=== PATIENT | male | born 1965 | race Caucasian/White ===

== ENCOUNTER 2017-09-12 06:04 | Emergency (ER) | payer BC ==
[~2017-09-12] VITALS: Ht 190.5 cm; Wt 145.1 kg
--- NOTE | 2017-09-12 06:12 | NUR ---
PT TO ER BED 09. BIBFAMILY C/O BACK PAIN FROM [facility] X 2 HOURS AGO. DENIES LOC/HEAD TRAUMA. PT PLACED ON BL[employer]. VSS/RESP EVEN UNLABORED/NAD NOTED/SKIN WARM AND DRY/AFEBRILE/DENIES N-V-D/AOX4. AWAITING MD JACOB.
[2017-09-12] MEDS ORDERED: ONDANSETRON 4 MG TAB.RAPDIS SL ONE (06:30)
[2017-09-12] MEDS ORDERED: HYDROMORPHONE 1 MG/1 ML DISP.SYRIN IM ONE (06:30)
[2017-09-12] MEDS ORDERED: ONDANSETRON 4 MG TAB.RAPDIS ONE (06:37)
[2017-09-12] MEDS ORDERED: HYDROMORPHONE INJ 2 MG/ML DISP.SYRIN ONE (06:37)
[2017-09-12] MEDS ORDERED: HYDROCODONE/APAP 10/325MG 1 EA TABLET ONE (07:40)
--- NOTE | 2017-09-12 07:44 | NUR ---
Patient discharged to home in stable condition. Written and verbal after care instructions given. Instructed not to drive. Patient verbalizes understanding of instruction.
[2017-09-12 07:45] VITALS: BP 128/74
[2017-09-12] MEDS ORDERED: HYDROCODONE/APAP 10/325MG 1 EA TABLET PO ONE (08:00)
== END 2017-09-12 07:46 | disposition home or self-care (01) ==
LOC: ER 06:10
DX: S39.012A Strain of muscle, fascia and tendon of lower back, initial encounter (principal); S30.0XXA Contusion of lower back and pelvis, initial encounter; I10 Essential (primary) hypertension; E11.9 Type 2 diabetes mellitus without complications; Z98.890 Other specified postprocedural states; W18.39XA Other fall on same level, initial encounter; Y93.89 Activity, other specified; Y92.89 Other specified places as the place of occurrence of the external cause; Y99.8 Other external cause status
CPT/HCPCS: 72131-TC; A4606; J1170; Q0162; Z7610

== ENCOUNTER 2019-11-26 21:15 | Emergency (ER) | payer BC, MEDICARE, OTHER ==
[~2019-11-26] VITALS: Ht 170.2 cm; Wt 124.7 kg
[2019-11-26 21:29] VITALS: BP 157/105
== END 2019-11-26 22:14 | disposition home or self-care (01) ==
LOC: ER 21:19
DX: R05 Cough (principal); F41.9 Anxiety disorder, unspecified; I10 Essential (primary) hypertension; E11.9 Type 2 diabetes mellitus without complications; Z98.890 Other specified postprocedural states